=== PATIENT | female | born 1980 | race Caucasian/White ===

== ENCOUNTER 2018-08-16 08:05 | Inpatient (IN) | payer OTHER ==
[~2018-08-16 08:05] MED LIST: CITRIC ACID/SODIUM CITRATE 30 ML UNIT-DOSE CUP PO ONE; ELECTROLYTE-148 SOLN 1,000 ML IV SCH; TUBERCULIN PPD 5 TU/0.1ML SYRINGE (IN PATIENT USE ONLY) ID ONE
[2018-08-16] MEDS ORDERED: OXYTOCIN 20 UNITS in 0.9% NS 40 UNIT/2,000 ML INFUS.BAG IV ONE (08:57)
[2018-08-16] MEDS ORDERED: PHENYLEPHRINE HCL 10 MG/1 ML SINGLE DOSE VIAL ONE (09:08)
[2018-08-16] MEDS ORDERED: DEXAMETHASONE SOD PHOSPHATE 4 MG/1 ML VIAL ONE (09:08)
[2018-08-16] MEDS ORDERED: morphine SULFATE/Preservative Free 0.5 MG/ML (1cc Syringe) ONE (09:08)
[2018-08-16] MEDS ORDERED: ceFAZolin SODIUM 1 GM VIAL ONE (09:08)
--- NOTE | 2018-08-16 09:18 | HP ---
Past Medical History - Admission Chief Complaint: Here for section History of Present Illness: 38 y/o female with h/o prior c section here at 39.1 weeks for scheduled repeat section. complicated only by GERD. Otherwise no complaints. No significant medical history. 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 No: Constipation Hepatobiliary: No: Hepatitis B Renal/: No: Renal Inusuff, UTI Reproductive: No: Ectopic , Fibroids ...: 3 ...Para: 1 ...Term: 1 ...: 0 ...Spon : 1 ...Induced : 0 ...Multiple Gestation: 0 ...EDC by Sono: 08/22/18 Heme/Onc: No: Anemia Psych: No: Anxiety, Bipolar, Depression - Past Surgical History Past Surgical History: Yes: Hx Myomectomy: No Hx Transabdominal Cerclage: No - Smoking History Smoking history: Never smoked Have you smoked in the past 12 months: No - Alcohol/Substance Use Hx Alcohol Use: No History of Substance Use: reports: None - Social History Usual Living Arrangement: Yes: With Spouse ADL: Independent History of Recent Travel: No Home Medications - Allergies Allergies/Adverse Reactions: Allergies Allergy/AdvReac Type Severity Reaction Status Date / Time No Known Drug Allergies Allergy Verified 08/16/18 08:54 - Home Medications Home Medications: Ambulatory Orders Vitamins (Sjr) - 1 tab PO DAILY 07/15/18 Review of Systems - Review of Systems Constitutional: reports: No Symptoms Eyes: reports: No Symptoms HENT: reports: No Symptoms Neck: reports: No Symptoms Cardiovascular: reports: No Symptoms Respiratory: reports: No Symptoms Gastrointestinal: reports: Indigestion Genitourinary: reports: No Symptoms Breasts: reports: No Symptoms Reported Musculoskeletal: reports: No Symptoms Integumentary: reports: No Symptoms Neurological: reports: No Symptoms Endocrine: reports: No Symptoms Hematology/Lymphatic: reports: No Symptoms Psychiatric: reports: No Symptoms Physical Exam - Maternity Vital Signs: Vital Signs Temperature 97.6 F 08/16/18 08:05 Pulse Rate 66 08/16/18 08:05 Respiratory Rate 17 08/16/18 08:05 Blood Pressure 112/67 08/16/18 08:05 O2 Sat by Pulse Oximetry (%) Constitutional: Yes: Well Nourished, No Distress, Calm, Other Eyes: Yes: Conjunctiva Clear HENT: Yes: Atraumatic Neck: Yes: Supple Cardiovascular: Yes: Regular Rate and Rhythm Lungs: Clear to auscultation Breast(s): Yes: WNL - Abdominal Exam/OB Fundal Height: 9 Number of Fetuses: Single Presentation: Vertex Category: I Accelerations: Uniform Decelerations: None - Physical Exam Psychiatric: Yes: Alert, Oriented Hemorrhage Risk Assessment - Risk Factors Medium Risk Factors: Yes: None High Risk Factors: Yes: None Risk Score: 1 Risk Level: Medium Risk Problem List - Problems (1) History of delivery Code(s): Z98.891 - HISTORY OF UTERINE SCAR FROM PREVIOUS SURGERY Assessment/Plan 38 y/o P1 with h/o prior c section, for repeat consents signed - R/B/A discussed anesthesia aware oluie NPO
[2018-08-16] MEDS ORDERED: IBUPROFEN 800 MG/8 ML IJ IVPB PRN (09:24)
[2018-08-16] MEDS ORDERED: oxyCODONE HCL 5 MG TABLET PO PRN ×2 (09:24)
[2018-08-16] MEDS ORDERED: METHYLERGONOVINE MALEATE 0.2 MG/1 ML AMP IM PRN (09:24)
[2018-08-16] MEDS ORDERED: KETAMINE HCL 500 MG/10 ML VIAL ONE (09:33)
[2018-08-16] MEDS: OXYTOCIN 20 UNITS in 0.9% NS 20 UNIT/1,000 ML INFUS.BAG IV SCH ×2 (09:36→14:00)
[2018-08-16] MEDS ORDERED: ACETAMINOPHEN 1000 MG/100 ML VIAL (NON FORMULARY) IVPB PRN (10:21)
[2018-08-16] MEDS: PRENATAL VITAMINS W/ FOLIC ACID TABLET (FP) PO SCH (10:37)
[2018-08-16] MEDS ORDERED: IBUPROFEN 800 MG/8 ML IJ IVPB ONE (10:38)
--- NOTE | 2018-08-16 10:57 | OP ---
Operative Note - Note: Operative Date: 08/16/18 (dictation [id number]) Pre-Operative Diagnosis: Prior delivery, SIUP at 39 weeks, declines TOLAC Operation: repeat delivery Findings: normal b/l tubes and ovaries Post-Operative Diagnosis: Same as Pre-op Surgeon: Paulina Carlson Lipstick Molder: Pablito Youssef Anesthesiologist/SAFETY COUNSELOR: Dahiana Jackson Anesthesia: Spinal Specimens Removed: placenta Estimated Blood Loss (mls): 600 Operative Report Dictated: Yes
--- NOTE | 2018-08-16 11:47 | OP ---
DATE OF OPERATION: 08/16/2018 PREOPERATIVE DIAGNOSIS: Prior section, surgery intrauterine at 39 weeks' gestation, declines trial of labor after . POSTOPERATIVE DIAGNOSIS: Prior section, surgery intrauterine at 39 weeks' gestation, declines trial of labor after . PROCEDURE: Repeat low transverse section. SURGEON: Paulina Carlson DO ANESTHESIA: Spinal by Dahiana Jackson MD COMPLICATIONS: None. ESTIMATED BLOOD LOSS: 700 mL. MANAGER CONTRACTING: GABRIELA Canales SPECIMENS REMOVED: Placenta. Sponge, needle, and instrument count correct. DISPOSITION: Stable to PACU. FINDINGS: Normal bilateral tubes and ovaries. BRIEF HISTORY AND PROCEDURE: The patient is a 38-year-old female with a history of a prior delivery who presented to the hospital on August 16, 2018 for a scheduled repeat section. The patient had been counseled on the options in the office, and she declined a trial of labor. Upon admission to the hospital, the patient signed consents for a delivery. Risks, benefits, and alternatives were discussed. The patient was then taken back to the operating room where she was given spinal anesthesia by Dr. Dahiana Jackson and placed in a dorsal supine position. A Wang catheter was placed under sterile conditions. She was prepped and draped in the usual sterile fashion, and a hard time-out was performed. A Pfannenstiel skin incision was created in the skin with a scalpel and carried to the underlying layer of rectus fascia bluntly. The fascia was incised on either side of the midline with a Bovie, and the fascial incision was carried in a superolateral direction sharply. The fascia was tented upward and dissected off the underlying layer of rectus muscle sharply. The musculature was identified in the midline and laterally, and the peritoneum was elevated and entered sharply and carefully dissected to allow for adequate room for delivery. The Kassidy blade was placed over the bladder. A transverse incision in the lower uterine segment was completed and extended in a superolateral direction bluntly, and the infant was then delivered from the ROT position without difficulty. Bilateral shoulders and remainder of delivered with ease. The cord was clamped twice and cut in between. The infant was taken over to the warmer to be assessed by Neonatology where Apgars of 9/9 were assigned. The placenta was then delivered intact with a 3-vessel cord and manually extracted. The uterus was exteriorized from the abdomen, inspected, and cleared of all amniotic membrane and debris with a dry lap sponge. The hysterotomy was reapproximated in a double-layer closure using 1 Vicryl in a running, locked fashion and the 2nd layer using 0 Biosyn in a running, locked fashion. Excellent hemostasis was achieved. Bilateral tubes and ovaries were noted to be normal. Posterior cul-de-sac was cleared of amniotic fluid and blood clots. The uterus was placed back into the abdomen. Bilateral gutters were inspected and cleared of all debris. The hysterotomy was again examined and noted to be hemostatic. The peritoneum was reapproximated using 2-0 chromic in a running fashion. The musculature was reapproximated in 2 layers with sutures. The fascia was reapproximated using 1 Vicryl in a running fashion. The subcutaneous tissue was irrigated and reapproximated using 3-0 Vicryl, and the skin was reapproximated in subcuticular fashion using 3-0 Vicryl suture. Steri-Strips were applied. The patient tolerated the procedure well and is recovering in stable condition in the PACU at the time of this dictation. PAULINA CARLSON DO /[id number]
[2018-08-16] MEDS: KETOROLAC TROMETHAMINE 30 MG/1 ML VIAL IM SCH (17:42)
[2018-08-17] MEDS: KETOROLAC TROMETHAMINE 30 MG/1 ML VIAL IM SCH ×3 (01:21→19:04)
--- NOTE | 2018-08-17 06:27 | PN ---
Progress Note (SOAP) - Subjective Chief Complaint: Pt doing well - Current Medications Current Medications: Active Medications Acetaminophen (Tylenol -) 650 mg PO Q4H PRN PRN Reason: FEVER Acetaminophen (Ofirmev Injection -) 1,000 mg IVPB Q6H PRN PRN Reason: FEVER Bisacodyl (Dulcolax Suppository -) 10 mg RC PRN PRN PRN Reason: CONSTIPATION Diphenhydramine HCl (Benadryl Injection -) 25 mg IVPUSH Q4H PRN PRN Reason: Pruritis Last Admin: 08/16/18 14:02 Dose: 25 mg Diphtheria/Tetanus/Acell Pertussis (Boostrix -) 0.5 ml IM .ONCE ONE Stop: 08/17/18 10:01 Oxytocin/Sodium Chloride (Normal Saline+20 Units Oxytocin -) 20 unit in 1,000 mls @ 125 mls/hr IV ASDIR [facility] Last Admin: 08/16/18 14:00 Dose: 125 mls/hr Parenteral Electrolytes (Plasma-Lyte 148 -) 1,000 mls @ 125 mls/hr IV ASDIR [facility] Last Admin: 08/16/18 08:20 Dose: 125 mls/hr Ibuprofen (Motrin -) 600 mg PO Q4H PRN PRN Reason: PAIN LEVEL 1 - 3 Ibuprofen (Caldolor Injection -) 800 mg IVPB Q8H PRN PRN Reason: PAIN LEVEL 6-10 Last Admin: 08/16/18 10:44 Dose: 800 mg Ketorolac Tromethamine (Toradol Injection -) 30 mg IM Q8H-IV [facility] Stop: 08/21/18 17:59 Last Admin: 08/17/18 01:21 Dose: 30 mg Methylergonovine Maleate (Methergine Injection -) 0.2 mg IM Q4H PRN PRN Reason: Excessive Bleeding (L&D) Oxycodone HCl (Roxicodone -) 5 mg PO Q4H PRN PRN Reason: PAIN LEVEL 4 - 6 Oxycodone HCl (Roxicodone -) 10 mg PO Q4H PRN PRN Reason: PAIN LEVEL 7 - 10 Multivit/Folic Acid/Iron ( Vitamins (Sjr) -) 1 tab PO DAILY [facility] Last Admin: 08/16/18 10:37 Dose: Not Given Simethicone (Mylicon -) 80 mg PO Q4H PRN PRN Reason: GAS - Objective Vital Signs: Vital Signs Temperature 98.5 F 08/17/18 02:00 Pulse Rate 73 08/17/18 02:00 Respiratory Rate 20 08/17/18 04:00 Blood Pressure 102/57 L 08/17/18 02:00 O2 Sat by Pulse Oximetry (%) 100 08/16/18 11:00 Constitutional: Yes: Well Nourished, No Distress Gastrointestinal: Yes: WNL, Soft ....Post : Yes: Uterus firm, Uterus non-tender Breast(s): Yes: WNL Musculoskeletal: Yes: WNL Extremities: Yes: WNL Peripheral Pulses WNL: No Edema: No Wound/Incision: Yes: Clean/Dry, Well Approximated Assessment/Plan Sp CS Plan POD1 Stable Plan Continue present management
[2018-08-17 07:59] LABS: BASO % 0.1 % (0-2.0); EOS % 0.2 % (0-4.5); HEMATOCRIT 28.8 % (32.4-45.2); HEMOGLOBIN 9.4 GM/dL (10.7-15.3); LYMPH % 18.8 % (8-40); MCHC 32.6 g/dl (32.0-36.0); MEAN PLT VOLUME 9.1 fl (7.5-11.1); MONO % 5.8 % (3.8-10.2); NEUT % 75.1 % (42.8-82.8); PLATELET COUNT 226 K/MM3 (134-434); RBC 3.14 M/mm3 (3.60-5.2); WHITE BLOOD COUNT 16.4 K/mm3 (4.0-10.0)
[2018-08-17] MEDS ORDERED: BISACODYL 10 MG SUPP.RECT RC PRN (09:24)
[2018-08-17] MEDS ORDERED: DIPHTH,PERTUSS(ACELL),TET 0.5 ML DISP.SYRIN IM ONE (10:00)
--- NOTE | 2018-08-17 10:06 | PN ---
Progress Note (short form) - Note Progress Note: ANESTHESIOLOGY POST-OP CHECK 38F s/p repeat under spinal anesthesia, POD #1. No acute complaints. Pain 8/10 and tolerable. Denies N/V, backache, headache. Ambulating, tolerating PO. Vital Signs Temperature 98.8 F 08/17/18 06:00 Pulse Rate 85 08/17/18 06:00 Respiratory Rate 20 08/17/18 06:00 Blood Pressure 117/50 L 08/17/18 06:00 O2 Sat by Pulse Oximetry (%) 100 08/16/18 11:00 Active Medications Acetaminophen (Tylenol -) 650 mg PO Q4H PRN PRN Reason: FEVER Acetaminophen (Ofirmev Injection -) 1,000 mg IVPB Q6H PRN PRN Reason: FEVER Bisacodyl (Dulcolax Suppository -) 10 mg RC PRN PRN PRN Reason: CONSTIPATION Diphenhydramine HCl (Benadryl Injection -) 25 mg IVPUSH Q4H PRN PRN Reason: Pruritis Last Admin: 08/16/18 14:02 Dose: 25 mg Oxytocin/Sodium Chloride (Normal Saline+20 Units Oxytocin -) 20 unit in 1,000 mls @ 125 mls/hr IV ASDIR [facility] Last Admin: 08/16/18 14:00 Dose: 125 mls/hr Parenteral Electrolytes (Plasma-Lyte 148 -) 1,000 mls @ 125 mls/hr IV ASDIR [facility] Last Admin: 08/16/18 08:20 Dose: 125 mls/hr Ibuprofen (Motrin -) 600 mg PO Q4H PRN PRN Reason: PAIN LEVEL 1 - 3 Ibuprofen (Caldolor Injection -) 800 mg IVPB Q8H PRN PRN Reason: PAIN LEVEL 6-10 Last Admin: 08/16/18 10:44 Dose: 800 mg Ketorolac Tromethamine (Toradol Injection -) 30 mg IM Q8H-IV [facility] Stop: 08/21/18 17:59 Last Admin: 08/17/18 01:21 Dose: 30 mg Methylergonovine Maleate (Methergine Injection -) 0.2 mg IM Q4H PRN PRN Reason: Excessive Bleeding (L&D) Oxycodone HCl (Roxicodone -) 5 mg PO Q4H PRN PRN Reason: PAIN LEVEL 4 - 6 Oxycodone HCl (Roxicodone -) 10 mg PO Q4H PRN PRN Reason: PAIN LEVEL 7 - 10 Multivit/Folic Acid/Iron ( Vitamins (Sjr) -) 1 tab PO DAILY [facility] Last Admin: 08/16/18 10:37 Dose: Not Given Simethicone (Mylicon -) 80 mg PO Q4H PRN PRN Reason: GAS Gen: awake, alert, NAD No apparent anesthesia complications. Pain controlled. Continue managment as per primary team.
[2018-08-17] MEDS: PRENATAL VITAMINS W/ FOLIC ACID TABLET (FP) PO SCH (11:20)
[2018-08-17] MEDS: SIMETHICONE 80 MG TAB.CHEW (FP) PO PRN ×3 (11:30→21:28)
[2018-08-17] MEDS: ACETAMINOPHEN 325 MG TABLET (FP) PO PRN ×2 (16:40→21:29)
[2018-08-17] MEDS: IBUPROFEN 600 MG TABLET (FP) PO PRN ×2 (16:40→21:28)
[2018-08-18] MEDS: KETOROLAC TROMETHAMINE 30 MG/1 ML VIAL IM SCH (02:00)
[2018-08-18] MEDS: ACETAMINOPHEN 325 MG TABLET (FP) PO PRN ×3 (02:57→21:51)
[2018-08-18] MEDS: SIMETHICONE 80 MG TAB.CHEW (FP) PO PRN ×4 (02:57→21:51)
[2018-08-18] MEDS: IBUPROFEN 600 MG TABLET (FP) PO PRN ×5 (02:58→21:51)
--- NOTE | 2018-08-18 08:18 | PN ---
Post Note - Post Date of Delivery: 08/16/18 Post Day: 2 Vital Signs: Vital Signs - 24 hr 08/17/18 08/17/18 08/17/18 09:00 10:00 11:00 Temperature 98.2 F Pulse Rate 76 Respiratory 20 20 20 Rate Blood Pressure 95/63 08/17/18 21:00 Temperature 98.1 F Pulse Rate 80 Respiratory 20 Rate Blood Pressure 96/62 Labs: Laboratory Results - last 24 hr 08/17/18 07:30 WBC 16.4 H RBC 3.14 L Hgb 9.4 L Hct 28.8 L D MCV 92.0 MCH 30.0 MCHC 32.6 RDW 13.0 Plt Count 226 MPV 9.1 Absolute Neuts (auto) 12.3 H Neutrophils % 75.1 Lymphocytes % 18.8 Monocytes % 5.8 Eosinophils % 0.2 Basophils % 0.1 Nucleated RBC % 0 - Subjective Subjective: No Complaints - Objective Breast: Not engorged Abdomen: Soft, Non-tender Uterus: Fundus firm Vagina: Scant lochia Extremities: Non-tender - Assessment/Plan (1) History of delivery Assessment: Other (SP CEsaran Section) Plan: Routine Care, Other (POD 2)
[2018-08-18] MEDS: PRENATAL VITAMINS W/ FOLIC ACID TABLET (FP) PO SCH (09:24)
[2018-08-19] MEDS: IBUPROFEN 600 MG TABLET (FP) PO PRN ×2 (07:30→12:34)
[2018-08-19] MEDS: ACETAMINOPHEN 325 MG TABLET (FP) PO PRN ×2 (07:31→12:34)
[2018-08-19] MEDS: SIMETHICONE 80 MG TAB.CHEW (FP) PO PRN ×2 (07:31→12:35)
[2018-08-19 08:11] LABS: BASO % 0.3 % (0-2.0); HEMATOCRIT 31.6 % (32.4-45.2); HEMOGLOBIN 11.3 GM/dL (10.7-15.3); LYMPH % 21.8 % (8-40); MCH 32.8 pg (25.7-33.7); MCHC 35.8 g/dl (32.0-36.0); MEAN CELL VOLUME 91.6 fl (80-96); MEAN PLT VOLUME 8.9 fl (7.5-11.1); MONO % 4.7 % (3.8-10.2); NEUT % 72.2 % (42.8-82.8); PLATELET COUNT 302 K/MM3 (134-434); RBC 3.45 M/mm3 (3.60-5.2); WHITE BLOOD COUNT 13.4 K/mm3 (4.0-10.0)
[2018-08-19 08:32] VITALS: BP 117/64; PULSE 64; TEMP 98.4
[2018-08-19] MEDS: PRENATAL VITAMINS W/ FOLIC ACID TABLET (FP) PO SCH (09:09)
--- NOTE | 2018-08-19 09:55 | DS ---
Physical Exam-JOURNEYMAN TOOL AND DIE MAKER Vital Signs: Vital Signs Temperature 98.4 F 08/19/18 07:20 Pulse Rate 64 08/19/18 07:20 Respiratory Rate 18 08/19/18 07:20 Blood Pressure 117/64 08/19/18 07:20 O2 Sat by Pulse Oximetry (%) 100 08/16/18 11:00 Constitutional: Yes: Well Nourished Eyes: Yes: Conjunctiva Clear HENT: Yes: Atraumatic Neck: Yes: Supple Cardiovascular: Yes: Regular Rate and Rhythm Respiratory: Yes: Regular Gastrointestinal: Yes: Normal Bowel Sounds External Genitalia: Yes: Normal Vaginal Exam: Yes: Normal Cervix: Yes: Normal ....Post : Yes: Uterus firm Wound/Incision: Yes: Clean/Dry, Well Approximated Neurological: Yes: Alert, Oriented ...Motor Strength: WNL Psychiatric: Yes: Alert, Oriented Labs: CBC, BMP 08/19/18 07:30 Delivery - Delivery Type of Anesthesia: Spinal EBL (cc): 600 Delivery, Single - Stages of Labor Date of Delivery: 08/16/18 Time of Delivery: 09:34 Time Placenta Delivered: 09:36 - Condition of Videotape Sales Representative/Paper Hanger Present: Yes Name: Greta Alexander Gender: Female Weight: 6 lb 15 oz Position: Right, OT Total Hours ROM (Hrs/Mins): 3 minutes - 1 Minute Total Score: 9 5 Minutes Total Score: 9 - [place] Feeding Plan Initial Plan: Elected not to breastfeed exclusively throughout hospitalization Discharge Summary Reason For Visit: Current Active Problems History of delivery (Acute) Procedures: Principal: Repeat Low Transverse Hospital Course: Routine post op care Condition: Good - Instructions Disposition: HOME - Home Medications Comprehensive Discharge Medication List: Ambulatory Orders Vitamins (Sjr) - 1 tab PO DAILY 07/15/18
--- NOTE | 2018-08-22 15:02 | PATH ---
Surgical Pathology Report Patient Name: MAZIN MARIN Med. Rec. #: [id number] /Age/Gender: 1980 (Age: 38) / F Account: [id number] Location: [facility] OBS/TRAVEL REGISTERED NURSE NICU Taken: 08/16/2018 Received: 08/17/2018 Reported: 08/22/2018 Physicians: Paulina Carlson M.D. Specimen(s) Received PLACENTA Clinical History , SAB x1, 2005, 39.1 weeks Final Diagnosis PLACENTA, SECTION: 488 G THIRD TRIMESTER PLACENTA WITH TRIVASCULAR UMBILICAL CORD AND UNREMARKABLE PLACENTAL MEMBRANES. Electronically Signed Mary Rincon M.D. Gross Description The specimen is received fresh labeled placenta and is a 488 gram, 25.0 x 16.0 x 1.8 cm. placenta with attached membranes and umbilical cord. The attached membranes are fan, translucent with focal opacities and insert marginally. The umbilical cord measures 33 cm. in length and averages 1.2 cm. in diameter. The cord inserts eccentrically, 5.5 cm. to the nearest margin. No true knots or strictures are identified. Cut surface of the umbilical cord reveals 3 vessels. The surface is anderson-blue with minimal fibrin deposition and appropriate caliber vessels. The maternal surface is red-brown with focal defects. Sectioning reveals red-brown, spongy parenchyma. No lesions are identified. Principal Java Developer sections are submitted in three cassettes as follows: 1- membrane rolls and umbilical cord; 2-3- full thickness sections of placenta. 08/19/2018 [facility]08/19/2018
== END 2018-08-19 16:00 | disposition home or self-care (01) | DRG 540 ==
LOC: JLDR 08:05 → J3W 11:37
PROVIDERS: ADMIT Obstetrics & Gynecology; ATTEND Obstetrics & Gynecology
PROC: 10D00Z1 Extraction of Products of Conception, Low, Open Approach (ICD-10-PCS; principal; 2018-08-16)
DX: O34.211 Maternal care for low transverse scar from previous cesarean delivery (principal); Z3A.39 39 weeks gestation of pregnancy; Z37.0 Single live birth
CPT/HCPCS: 36415; 85025; 88307-TC